=== PATIENT | male | born 1950 | race American Indian/Alaskan Native ===

== ENCOUNTER 2017-07-24 10:59 | Emergency (ER) | payer OTHER, MEDICARE ==
--- NOTE | 2017-07-24 11:08 | EDM.PDOC ---
ED HPI GENERAL MEDICAL PROBLEM - General Chief Complaint: Chest Pain Stated Complaint: Cough, fever, chest hurts with cough Time Seen by Provider: 07/24/17 11:06 Source of Information: Reports: Patient, Family, Old Records, RN, RN Notes Reviewed History Limitations: Reports: No Limitations - History of Present Illness INITIAL COMMENTS - FREE TEXT/NARRATIVE: Arrives from home by POV with c/o 4 days duration of productive cough, fever, chills, nausea, and chest pains which he attributes to coughing. Denies edema, or difficulty breathing. Admits to orthopnea. Onset: Gradual Onset Date: 07/20/17 Duration: Constant Location: Reports: Chest Quality: Reports: Ache Severity: Moderate Improves with: Reports: None Worsens with: Reports: Other (supine position) Context: Reports: Sick Contact (granddaughter) Associated Symptoms: Reports: No Other Symptoms - Related Data Allergies Allergy/AdvReac Type Severity Reaction Status Date / Time No Known Allergies Allergy Verified 07/24/17 11:11 Home Meds: Home Meds Insulin Aspart [NovoLOG] 15 units SQ TID 07/24/17 [History] Insulin Detemir [Levemir] 60 units SQ BEDTIME 07/24/17 [History] Past Medical History Endocrine/Metabolic History: Reports: Diabetes, Type II, IDDM Social & Family History - Family History Family Medical History: Noncontributory - Tobacco Use Smoking Status *Q: Former Smoker Years of Tobacco use: 20 Second Hand Smoke Exposure: Yes - Alcohol Use Days Per Week of Alcohol Use: 0 - Recreational Drug Use Recreational Drug Use: No - Living Situation & Occupation Living situation: Reports: , with Spouse Occupation: Employed ED ROS GENERAL - Review of Systems Review Of Systems: ROS reveals no pertinent complaints other than HPI. ED EXAM, GENERAL - Physical Exam Exam: See Below Exam Limited By: No Limitations General Appearance: Alert, WD/WN, No Apparent Distress Eye Exam: Bilateral Eye: Normal Inspection Ears: Normal External Exam, Normal Canal, Hearing Grossly Normal, Normal TMs Nose: No Blood, Nasal Drainage (mild clear-yellow nasal drainage) Throat/Mouth: Normal Lips, Normal Teeth, Normal Gums, Normal Voice, No Airway Compromise, Other (mild pharyngeal erythema) Head: Atraumatic, Normocephalic Neck: Normal Inspection, Supple, Non-Tender, Full Range of Motion. No: Lymphadenopathy (L), Lymphadenopathy (R) Respiratory/Chest: No Respiratory Distress, No Accessory Muscle Use, Decreased Breath Sounds, Rales (fine bibasilar crackles), Rhonchi (left base and mid-chest ) Cardiovascular: Regular Rate, Rhythm, No Edema, Tachycardia GI/Abdominal: Normal Bowel Sounds, Soft, Non-Tender, No Distention (Male) Exam: Deferred Rectal (Males) Exam: Deferred Back Exam: Normal Inspection. No: CVA Tenderness (L), CVA Tenderness (R) Extremities: Normal Inspection, Normal Range of Motion, Non-Tender, Normal Capillary Refill, No Pedal Edema Neurological: Alert, Oriented, CN II-XII Intact, Normal Cognition, No Motor/ Sensory Deficits Psychiatric: Normal Affect, Normal Mood Skin Exam: Warm, Dry, Intact, Normal Color, No Rash EKG INTERPRETATION EKG Date: 07/24/17 Time: 12:10 Rhythm: Other (Sinus tach.) Rate (Beats/Min): 110 [place]: Normal P-Wave: Present QRS: Normal ST-T: Depressed (possible ischemia in lateral and anterior leads) QT: Prolonged Comparison: NA - No Prior EKG Course - Vital Signs Last Recorded V/S: Last Vital Signs Temp 37.7 C 07/24/17 11:06 Pulse 115 H 07/24/17 11:06 Resp 20 07/24/17 11:06 BP 151/77 H 07/24/17 11:06 Pulse Ox 93 L 07/24/17 11:06 - Orders/Labs/Meds Orders: Active Orders 24 hr Category Date Time Status EKG 12 Lead [EKG Documentation Completion] [RC] STAT Care 07/24/17 11:22 Active Peripheral IV Care [RC] . DIRECTED Care 07/24/17 11:23 Active Peripheral IV Care [RC] . DIRECTED Care 07/24/17 12:45 Active CULTURE BLOOD [BC] Stat Lab 07/24/17 11:35 Received CULTURE BLOOD [] Stat Lab 07/24/17 11:41 Received CULTURE STREP A CONFIRMATION [] Stat Lab 07/24/17 12:30 Results STREP SCRN A RAPID W CULT CONF [] Stat Lab 07/24/17 12:30 Results UA W/MICROSCOPIC [URIN] Stat Lab 07/24/17 11:22 Ordered Heparin Sodium/D5W [Heparin 25,000 Units in D5W 500 ML] Med 07/24/17 12:30 Active 25,000 units in 500 ml IV TITRATE Sodium Chloride 0.9% [Normal Saline] 1,000 ml Med 07/24/17 11:24 Active IV .BOLUS Sodium Chloride 0.9% [Saline Flush] [facility] 07/24/17 11:23 Active 10 ml FLUSH ASDIRECTED PRN Sodium Chloride 0.9% [Saline Flush] [facility] 07/24/17 12:45 Active 10 ml FLUSH ASDIRECTED PRN Blood Culture x2 Reflex Set [OM.PC] Stat Ot 07/24/17 11:22 Ordered Peripheral IV Insertion Adult [OM.PC] Stat Ot 07/24/17 11:22 Ordered Peripheral IV Insertion Adult [OM.PC] Stat [facility] 07/24/17 12:45 Ordered Medication Orders Sodium Chloride (Normal Saline) 1,000 mls @ 200 mls/hr IV .BOLUS ONE Stop: 07/24/17 16:23 Last Admin: 07/24/17 11:44 Dose: 200 mls/hr Heparin Sodium/Dextrose (Heparin 25,000 Units In D5w 500 Ml) 25,000 units in 500 mls @ 26.998 mls/hr IV TITRATE MALENA; 12 UNITS/KG/HR PRN Reason: Protocol Last Admin: 07/24/17 12:46 Dose: 12 units/kg/hr, 26.998 mls/hr Sodium Chloride (Saline Flush) 10 ml FLUSH ASDIRECTED PRN PRN Reason: Keep Vein Open Last Admin: 07/24/17 11:44 Dose: 10 ml Sodium Chloride (Saline Flush) 10 ml FLUSH ASDIRECTED PRN PRN Reason: Keep Vein Open Last Admin: 07/24/17 12:59 Dose: 10 ml Labs: Laboratory Tests 07/24/17 07/24/17 07/24/17 Range/Units 11:35 11:35 11:35 WBC 6.0 (5.0-10.0) 10^3/uL RBC 4.71 (4.6-6.2) 10^6/uL Hgb 14.0 (14.0-18.0) g/dL Hct 41.2 (40.0-54.0) % MCV 87.5 (80-100) fL MCH 29.7 (27.0-34.0) pg MCHC 34.0 (33.0-35.0) g/dL Plt Count 224 D (150-450) 10^3/uL Neut % (Auto) 78.0 H (42.2-75.2) % Lymph % (Auto) 11.6 L (20.5-50.1) % [place] % (Auto) 9.6 H (2-8) % Eos % (Auto) 0.0 L (1.0-3.0) % Baso % (Auto) 0.8 (0.0-1.0) % Sodium 132 L (135-145) mmol/L Potassium 3.9 (3.6-5.0) mmol/L Chloride 97 L (101-111) mmol/L Carbon Dioxide 23.0 (21.0-31.0) mmol/L Anion Gap 15.9 BUN 26 H (7-18) mg/dL Creatinine 1.7 H (0.6-1.3) mg/dL Est Cr Clr Drug Dosing 41.91 mL/min Estimated GFR (MDRD) 41 BUN/Creatinine Ratio 15.29 Glucose 220 H (74-105) mg/dL Lactic Acid 2.0 (0.5-2.2) mmol/L Calcium 8.1 L (8.4-10.2) mg/dl Total Bilirubin 1.0 (0.2-1.0) mg/dL AST 58 H (10-42) IU/L ALT 32 (10-60) IU/L Alkaline Phosphatase 88 (42-121) IU/L Creatine Kinase (26-174) IU/L Creatine Kinase Index (0-2.4) % CK-MB (CK-2) (0.4-4.7) ng/mL Troponin I 6.00 H* (0.00-0.02) ng/ml B-Natriuretic Peptide (0-100) pg/ml Total Protein 7.2 (6.7-8.2) g/dl Albumin 2.9 L (3.2-5.5) g/dl Globulin 4.3 Albumin/Globulin Ratio 0.67 07/24/17 07/24/17 Range/Units 11:35 11:35 WBC (5.0-10.0) 10^3/uL RBC (4.6-6.2) 10^6/uL Hgb (14.0-18.0) g/dL Hct (40.0-54.0) % MCV (80-100) fL MCH (27.0-34.0) pg MCHC (33.0-35.0) g/dL Plt Count (150-450) 10^3/uL Neut % (Auto) (42.2-75.2) % Lymph % (Auto) (20.5-50.1) % [place] % (Auto) (2-8) % Eos % (Auto) (1.0-3.0) % Baso % (Auto) (0.0-1.0) % Sodium (135-145) mmol/L Potassium (3.6-5.0) mmol/L Chloride (101-111) mmol/L Carbon Dioxide (21.0-31.0) mmol/L Anion Gap BUN (7-18) mg/dL Creatinine (0.6-1.3) mg/dL Est Cr Clr Drug Dosing mL/min Estimated GFR (MDRD) BUN/Creatinine Ratio Glucose (74-105) mg/dL Lactic Acid (0.5-2.2) mmol/L Calcium (8.4-10.2) mg/dl Total Bilirubin (0.2-1.0) mg/dL AST (10-42) IU/L ALT (10-60) IU/L Alkaline Phosphatase (42-121) IU/L Creatine Kinase 861 H (26-174) IU/L Creatine Kinase Index 0.4 (0-2.4) % CK-MB (CK-2) 3.10 (0.4-4.7) ng/mL Troponin I (0.00-0.02) ng/ml B-Natriuretic Peptide 1450 H (0-100) pg/ml Total Protein (6.7-8.2) g/dl Albumin (3.2-5.5) g/dl Globulin Albumin/Globulin Ratio Meds: Medications Generic Name Dose Route Start Last Admin Trade Name Freq PRN Reason Stop Dose Admin Sodium Chloride 1,000 mls @ 200 mls/hr 07/24/17 11:24 07/24/17 11:44 Normal Saline IV 07/24/17 16:23 200 mls/hr .BOLUS ONE Administration Heparin Sodium/Dextrose 25,000 units in 500 mls @ 26.998 mls/hr 07/24/17 12: 30 07/24/17 12:46 Heparin 25,000 Units In D5w 500 Ml IV 12 units/kg/hr TITRATE MALENA 26.998 mls/hr Protocol Administration 12 UNITS/KG/HR Sodium Chloride 10 ml 07/24/17 11:23 07/24/17 11:44 Saline Flush FLUSH 10 ml ASDIRECTED PRN Administration Keep Vein Open Sodium Chloride 10 ml 07/24/17 12:45 07/24/17 12:59 Saline Flush FLUSH 10 ml ASDIRECTED PRN Administration Keep Vein Open Discontinued Medications Generic Name Dose Route Start Last Admin Trade Name Freq PRN Reason Stop Dose Admin Acetaminophen 650 mg 07/24/17 13:07 Tylenol PO 07/24/17 13:08 NOW ONE Aspirin 324 mg 07/24/17 12:24 07/24/17 12:33 Aspirin PO 07/24/17 12:25 324 mg ONETIME ONE Administration Ceftriaxone Sodium 1 gm 07/24/17 12:45 07/24/17 12:59 Rocephin IVPUSH 07/24/17 12:46 1 gm ONETIME ONE Administration Ondansetron HCl 4 mg 07/24/17 11:25 07/24/17 11:44 Zofran IV 07/24/17 11:26 4 mg ONETIME ONE Administration - Radiology Interpretation Free Text/Narrative:: CXR: Left lingula pneumonia, see Rad. report. Departure - Departure Time of Disposition: 13:06 Disposition: DC/Tfer to Acute Hospital 02 Condition: Serious Clinical Impression: Acute coronary syndrome, Non-STEMI (non-ST elevated myocardial infarction) Acute CHF (congestive heart failure) Qualifiers: Heart failure type: unspecified Qualified Code(s): I50.9 - Heart failure, unspecified Pneumonia Qualifiers: Pneumonia type: due to unspecified organism Laterality: left Lung location: lower lobe of lung Qualified Code(s): J18.1 - Lobar pneumonia, unspecified organism - Discharge Information Referrals: Genevieve Garcia VISITOR SERVICES TECHNICIAN [Primary Care Provider] - Forms: ED Department Discharge, Interfacility Transfer EMTALA - My Orders Last 24 Hours: My Active Orders 07/24/17 11:22 EKG 12 Lead [EKG Documentation Completion] [RC] STAT UA W/MICROSCOPIC [URIN] Stat Blood Culture x2 Reflex Set [OM.PC] Stat Peripheral IV Insertion Adult [OM.PC] Stat 07/24/17 11:23 Peripheral IV Care [RC] . DIRECTED Sodium Chloride 0.9% [Saline Flush] 10 ml FLUSH ASDIRECTED PRN 07/24/17 11:24 Sodium Chloride 0.9% [Normal Saline] 1,000 ml IV .BOLUS 07/24/17 11:35 CULTURE BLOOD [BC] Stat 07/24/17 11:41 CULTURE BLOOD [BC] Stat 07/24/17 12:30 CULTURE STREP A CONFIRMATION [RM] Stat STREP SCRN A RAPID W CULT CONF [RM] Stat Heparin Sodium/D5W [Heparin 25,000 Units in D5W 500 ML] 25,000 units in 500 ml IV TITRATE 07/24/17 12:45 Peripheral IV Care [RC] . DIRECTED Sodium Chloride 0.9% [Saline Flush] 10 ml FLUSH ASDIRECTED PRN Peripheral IV Insertion Adult [OM.] Stat - Assessment/Plan Last 24 Hours: My Active Orders 07/24/17 11:22 EKG 12 Lead [EKG Documentation Completion] [RC] STAT UA W/MICROSCOPIC [URIN] Stat Blood Culture x2 Reflex Set [OM.PC] Stat Peripheral IV Insertion Adult [OM.PC] Stat 07/24/17 11:23 Peripheral IV Care [RC] . DIRECTED Sodium Chloride 0.9% [Saline Flush] 10 ml FLUSH ASDIRECTED PRN 07/24/17 11:24 Sodium Chloride 0.9% [Normal Saline] 1,000 ml IV .BOLUS 07/24/17 11:35 CULTURE BLOOD [BC] Stat 07/24/17 11:41 CULTURE BLOOD [BC] Stat 07/24/17 12:30 CULTURE STREP A CONFIRMATION [RM] Stat STREP SCRN A RAPID W CULT CONF [RM] Stat Heparin Sodium/D5W [Heparin 25,000 Units in D5W 500 ML] 25,000 units in 500 ml IV TITRATE 07/24/17 12:45 Peripheral IV Care [RC] . DIRECTED Sodium Chloride 0.9% [Saline Flush] 10 ml FLUSH ASDIRECTED PRN Peripheral IV Insertion Adult [OM.] Stat
[2017-07-24 11:11] VITALS: BP 151/77
[2017-07-24] MEDS ORDERED: Sodium Chloride 0.9% 10 ML Syringe FLUSH PRN ×2 (11:23→12:45)
[2017-07-24] MEDS ORDERED: Sodium Chloride 0.9% 1,000 ML IV ONE (11:24)
[2017-07-24] MEDS ORDERED: Ondansetron 4 MG/2 ML SDV IV ONE (11:25)
[2017-07-24] MEDS ORDERED: Aspirin 81 MG Tab.Chew PO ONE (12:24)
[2017-07-24] MEDS ORDERED: Heparin Sodium/D5W 25,000 UNITS/500 ML BAG IV SCH (12:30)
[2017-07-24] MEDS ORDERED: cefTRIAXone 1 GM Vial IVPUSH ONE (12:45)
--- NOTE | 2017-07-24 12:56 | CR ---
CLINICAL HISTORY: 67-year-old extremely febrile male with chest pain (elevated serum troponin). INTERPRETATION: Upright AP portable chest film abnormal. *Asymmetric dense new pneumonic like consolidation lingular segment left upper lobe that silhouettes the left heart border (new since 10 April 2013 comparison film). Some generalized coarse accentuation of the perihilar lung markings but no other focal lobar consolid ation. Normal cardiac silhouette without cephalization of vascular flow, signs of alveolar edema or dependen t pleural effusion. No pneumothorax. CONCLUSION: Lingular pneumonia.
[2017-07-24] MEDS ORDERED: Acetaminophen 325 MG Tab PO ONE (13:07)
--- NOTE | 2017-07-26 10:58 | EKG ---
07/24/2017 - WINSTON CASTILLO - TIME: 12:10 p.m. FINDINGS: EKG shows sinus tachycardia with a rate of 110 beats per minute, also shows a borderline prolonged corrected QT interval of 482 milliseconds. [facility] /[id number]
== END 2017-07-24 13:19 ==
LOC: DL.ED 10:59
DX: I21.4 Non-ST elevation (NSTEMI) myocardial infarction (principal); I24.9 Acute ischemic heart disease, unspecified; I50.9 Heart failure, unspecified; E11.9 Type 2 diabetes mellitus without complications; J18.9 Pneumonia, unspecified organism; Z79.4 Long term (current) use of insulin; Z87.891 Personal history of nicotine dependence
CPT/HCPCS: 36415; 71045; 80053; 82550; 82553; 83605; 83880; 84484; 85025; 87040; 87081; 87430; 87804; 93005; 96361; 96365; 96375; 99285; A9270; J0696; J1644; J2405; J7030; J7050

== ENCOUNTER 2017-12-10 21:57 | Emergency (ER) | payer OTHER ==
[2017-12-10] MEDS ORDERED: GI Cocktail Oral Solution 30 ML PO ONE (22:10)
[2017-12-10] MEDS ORDERED: Ondansetron 4 MG/2 ML SDV IV ONE (22:10)
--- NOTE | 2017-12-10 22:13 | EDM.PDOC ---
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 CP began after leg massage and abd pain after eating egg salad. no vomiting but nauseous. Right Upper Abdomen Pain Score (Numeric/FACES): 9 - Related Data Allergies Allergy/AdvReac Type Severity Reaction Status Date / Time No Known Allergies Allergy Verified 12/10/17 22:01 Home Meds: Home Meds Insulin Aspart [NovoLOG] 15 units SQ TID 07/24/17 [History] Insulin Detemir [Levemir] 60 units SQ BEDTIME 07/24/17 [History] Past Medical History HEENT History: Reports: None Cardiovascular History: Reports: Bypass, High Cholesterol, Hypertension Respiratory History: Reports: Asthma Gastrointestinal History: Reports: None Genitourinary History: Reports: None Musculoskeletal History: Reports: Arthritis Neurological History: Reports: None Psychiatric History: Reports: None Endocrine/Metabolic History: Reports: Diabetes, Type II, IDDM Hematologic History: Reports: None Immunologic History: Reports: None Oncologic (Cancer) History: Reports: None Dermatologic History: Reports: None - Infectious Disease History Infectious Disease History: Reports: Chicken Pox, Measles, Mumps - Past Surgical History Head Surgeries/Procedures: Reports: None Cardiovascular Surgical History: Reports: Valve Replacement Social & Family History - Family History Family Medical History: Noncontributory - Tobacco Use Smoking Status *Q: Former Smoker Used Tobacco, but Quit: Yes Month/Year Tobacco Last Used: 11 - Caffeine Use Caffeine Use: Reports: Coffee - Recreational Drug Use Recreational Drug Use: No - Living Situation & Occupation Living situation: Reports: , with Spouse Occupation: Employed ED ROS GENERAL - Review of Systems Review Of Systems: ROS reveals no pertinent complaints other than HPI. ED EXAM, GENERAL - Physical Exam Exam: See Below Exam Limited By: No Limitations General Appearance: Alert, WD/WN, Mild Distress, Other (DISOCMFORT) Ears: Hearing Grossly Normal Throat/Mouth: Normal Voice, No Airway Compromise Head: Atraumatic Neck: Non-Tender, Full Range of Motion Respiratory/Chest: No Respiratory Distress Cardiovascular: Regular Rate, Rhythm GI/Abdominal: Distended, Guarding, Tender, Other (RUQ> epiG). No: Rigid, Rebound Neurological: Alert, Oriented, Normal Cognition, Normal Gait, No Motor/Sensory Deficits Psychiatric: Flat Affect Skin Exam: Warm, Dry, Normal Color Lymphatic: No Adenopathy Course - Vital Signs Last Recorded V/S: Last Vital Signs Temp 35.9 C 12/10/17 23:17 Pulse 65 12/10/17 23:45 Resp 17 12/10/17 23:45 BP 124/65 12/10/17 23:45 Pulse Ox 93 L 12/10/17 23:45 - Orders/Labs/Meds Orders: Active Orders 24 hr Category Date Time Status EKG 12 Lead [EKG Documentation Completion] [RC] STAT Care 12/10/17 22:05 Active Labs: Laboratory Tests 12/10/17 12/10/17 Range/Units 22:08 22:08 WBC 8.6 (5.0-10.0) 10^3/uL RBC 4.28 L (4.6-6.2) 10^6/uL Hgb 12.7 L (14.0-18.0) g/dL Hct 36.7 L (40.0-54.0) % MCV 85.7 (80-100) fL MCH 29.7 (27.0-34.0) pg MCHC 34.6 (33.0-35.0) g/dL Plt Count 249 (150-450) 10^3/uL Neut % (Auto) 50.1 (42.2-75.2) % Lymph % (Auto) 35.9 (20.5-50.1) % [place] % (Auto) 8.7 H (2-8) % Eos % (Auto) 4.3 H (1.0-3.0) % Baso % (Auto) 1.0 (0.0-1.0) % Sodium 134 L (135-145) mmol/L Potassium 4.1 (3.6-5.0) mmol/L Chloride 101 (101-111) mmol/L Carbon Dioxide 26.0 (21.0-31.0) mmol/L Anion Gap 11.1 BUN 33 H (7-18) mg/dL Creatinine 2.1 H (0.6-1.3) mg/dL Est Cr Clr Drug Dosing 33.93 mL/min Estimated GFR (MDRD) 32 BUN/Creatinine Ratio 15.71 Glucose 250 H (74-105) mg/dL Calcium 9.1 (8.4-10.2) mg/dl Total Bilirubin 0.5 (0.2-1.0) mg/dL AST 34 (10-42) IU/L ALT 28 (10-60) IU/L Alkaline Phosphatase 199 H (42-121) IU/L Troponin I 0.02 (0.00-0.02) ng/ml B-Natriuretic Peptide 82 (0-100) pg/ml Total Protein 6.9 (6.7-8.2) g/dl Albumin 3.4 (3.2-5.5) g/dl Globulin 3.5 Albumin/Globulin Ratio 0.97 Meds: Medications Discontinued Medications Generic Name Dose Route Start Last Admin Trade Name Freq PRN Reason Stop Dose Admin Al Hydroxide/Mg Hydroxide 30 ml 12/10/17 22:10 12/10/17 22:16 Gi Cocktail PO 12/10/17 22:11 30 ml ONETIME ONE Administration Hydromorphone HCl 1 mg 12/10/17 23:07 12/10/17 23:12 Dilaudid IVPUSH 12/10/17 23:08 1 mg ONETIME ONE Administration Ondansetron HCl 4 mg 12/10/17 22:10 12/10/17 22:15 Zofran IV 12/10/17 22:11 4 mg ONETIME ONE Administration - Re-Assessments/Exams Free Text/Narrative Re-Assessment/Exam: 12/10/17 23:00 s/p GI cocktail = 'o'. 12/10/17 23:47 results discussed with pt who is feeling much better now. Departure - Departure Time of Disposition: 23:48 Disposition: Home, Self-Care 01 Condition: Good Clinical Impression: Abdominal pain Qualifiers: Abdominal location: epigastric Qualified Code(s): R10.13 - Epigastric pain Instructions: Abdominal Pain, Adult, [id number] Forms: ED Department Discharge Additional Instructions: 1) avoid solid foods next 48 hours 2) have liquids broth 3) follow up at clinic - My Orders Last 24 Hours: My Active Orders 12/10/17 22:05 EKG 12 Lead [EKG Documentation Completion] [RC] STAT - Assessment/Plan Last 24 Hours: My Active Orders 12/10/17 22:05 EKG 12 Lead [EKG Documentation Completion] [RC] STAT
[2017-12-10 22:37] LABS: ANION GAP 11.1
[2017-12-10] MEDS ORDERED: HYDROmorphone 0.5 MG/0.5 ML Syringe IVPUSH ONE (23:07)
[2017-12-10 23:46] VITALS: BP 124/65
--- NOTE | 2017-12-12 07:34 | EKG ---
12/10/2017- WINSTON CASTILLO - EKG per my reading, shows sinus rhythm with lateral T-wave inversion. [facility] /[id number]
== END 2017-12-10 23:58 | disposition home or self-care (01) ==
LOC: DL.ED 21:57
DX: R10.13 Epigastric pain (principal); E11.9 Type 2 diabetes mellitus without complications; I10 Essential (primary) hypertension; Z87.891 Personal history of nicotine dependence; Z79.4 Long term (current) use of insulin
CPT/HCPCS: 36415; 71045; 74176; 80053; 83880; 84484; 85025; 93005; 96374; 96375; 99285; A9270; J1170; J2405

== ENCOUNTER 2018-07-17 14:13 | Emergency (ER) | payer BC, OTHER ==
[2018-07-17] MEDS ORDERED: HYDROmorphone 1 MG/ML Syringe IM ONE (15:25)
--- NOTE | 2018-07-17 15:46 | EDM.PDOC ---
ED HPI GENERAL MEDICAL PROBLEM - General Chief Complaint: Lower Extremity Injury/Pain Stated Complaint: SURG IN [place], PAIN Time Seen by Provider: 07/17/18 14:45 Source of Information: Reports: Patient, RN, RN Notes Reviewed History Limitations: Reports: No Limitations - History of Present Illness INITIAL COMMENTS - FREE TEXT/NARRATIVE: Patient presents to ER with complaint of pain to left foot with the last 3 toes being amputated this a.m. at 0730. He was discharged home at 1100. He rates the pain as a 9-10/10. States he took pain meds at 1300 and 1330 that are not helping at all. He states it feels as though its frozen solid. Onset: Today Duration: Constant Location: Reports: Lower Extremity, Left Quality: Reports: Ache Severity: Moderate Improves with: Reports: None Worsens with: Reports: None Associated Symptoms: Reports: No Other Symptoms Left Foot Pain Score (Numeric/FACES): 10 - Related Data Allergies Allergy/AdvReac Type Severity Reaction Status Date / Time No Known Allergies Allergy Verified 12/10/17 22:01 Home Meds: Home Meds Insulin Aspart [NovoLOG] 15 units SQ TID 07/24/17 [History] Insulin Detemir [Levemir] 20 units SQ BEDTIME 07/24/17 [History] Aspirin [Halfprin] 81 mg PO DAILY 07/17/18 [History] Furosemide 40 mg PO DAILY 07/17/18 [History] Mometasone/Formoterol [Dulera 200 Mcg/5 Mcg Inhaler] 2 puff INH BID 07/17/18 [ History] Saxagliptin HCl [Onglyza] 5 mg PO DAILY 07/17/18 [History] Past Medical History HEENT History: Reports: None Cardiovascular History: Reports: Bypass, High Cholesterol, Hypertension Respiratory History: Reports: Asthma Gastrointestinal History: Reports: None Genitourinary History: Reports: None Musculoskeletal History: Reports: Arthritis Neurological History: Reports: None Psychiatric History: Reports: None Endocrine/Metabolic History: Reports: Diabetes, Type II, IDDM Hematologic History: Reports: None Immunologic History: Reports: None Oncologic (Cancer) History: Reports: None Dermatologic History: Reports: None - Infectious Disease History Infectious Disease History: Reports: Chicken Pox, Measles, Mumps - Past Surgical History Head Surgeries/Procedures: Reports: None Cardiovascular Surgical History: Reports: Valve Replacement Social & Family History - Family History Family Medical History: Noncontributory - Tobacco Use Smoking Status *Q: Never Smoker Second Hand Smoke Exposure: No - Caffeine Use Caffeine Use: Reports: Coffee, Tea - Recreational Drug Use Recreational Drug Use: No - Living Situation & Occupation Living situation: Reports: , with Spouse Occupation: Employed Review of Systems - Review of Systems Review Of Systems: ROS reveals no pertinent complaints other than HPI. ED EXAM, GENERAL - Physical Exam Exam: See Below Exam Limited By: No Limitations General Appearance: Other (in pain) Eye Exam: Bilateral Eye: EOMI, Normal Inspection, PERRL Ears: Normal External Exam, Normal Canal, Hearing Grossly Normal, Normal TMs Nose: Normal Inspection, Normal Mucosa, No Blood Throat/Mouth: Normal Inspection, Normal Lips, Normal Teeth, Normal Gums, Normal Oropharynx, Normal Voice, No Airway Compromise Head: Atraumatic, Normocephalic Neck: Normal Inspection, Supple, Non-Tender, Full Range of Motion Respiratory/Chest: No Respiratory Distress, Lungs Clear, Normal Breath Sounds, No Accessory Muscle Use, Chest Non-Tender Cardiovascular: Normal Peripheral Pulses, Regular Rate, Rhythm, No Edema, No Gallop, No JVD, No Murmur, No Rub (Male) Exam: Deferred Rectal (Males) Exam: Deferred Back Exam: Normal Inspection, Full Range of Motion, NT Extremities: Other (see skin exam) Neurological: Other (in pain) Psychiatric: Anxious Skin Exam: Other (left foot swollen. Dressing with quite a bit of blood that was re-dressed. [place] and sutures intact. ) Lymphatic: No Adenopathy Course - Vital Signs Last Recorded V/S: Last Vital Signs Temp 98.5 F 07/17/18 14:20 Pulse 90 07/17/18 14:20 Resp 18 07/17/18 14:20 BP 137/66 07/17/18 14:20 Pulse Ox 100 07/17/18 14:20 - Orders/Labs/Meds Orders: Active Orders 24 hr Category Date Time Status Peripheral IV Care [RC] . DIRECTED Care 07/17/18 17:05 Active Sodium Chloride 0.9% [Saline Flush] Med 07/17/18 17:05 Active 10 ml FLUSH ASDIRECTED PRN fentaNYL [Sublimaze] Med 07/17/18 18:19 Once 50 mcg IVPUSH ONETIME ONE Peripheral IV Insertion Adult [OM.PC] Stat Oth 07/17/18 17:05 Ordered Medication Orders Fentanyl (Sublimaze) 50 mcg IVPUSH ONETIME ONE Stop: 07/17/18 18:20 Sodium Chloride (Saline Flush) 10 ml FLUSH ASDIRECTED PRN PRN Reason: Keep Vein Open Last Admin: 07/17/18 17:22 Dose: 10 ml Admin: 07/17/18 17:18 Dose: 10 ml Meds: Medications Generic Name Dose Route Start Last Admin Trade Name Freq PRN Reason Stop Dose Admin Fentanyl 50 mcg 07/17/18 18:19 Sublimaze IVPUSH 07/17/18 18:20 ONETIME ONE Sodium Chloride 10 ml 07/17/18 17:05 07/17/18 17:22 Saline Flush FLUSH 10 ml ASDIRECTED PRN Administration Keep Vein Open Discontinued Medications Generic Name Dose Route Start Last Admin Trade Name Freq PRN Reason Stop Dose Admin Fentanyl 50 mcg 07/17/18 17:04 07/17/18 17:19 Sublimaze IVPUSH 07/17/18 17:05 50 mcg ONETIME ONE Administration Hydromorphone HCl 1 mg 07/17/18 15:25 07/17/18 15:48 Dilaudid IM 07/17/18 15:26 1 mg ONETIME ONE Administration Departure - Departure Time of Disposition: 18:20 Disposition: Home, Self-Care 01 Condition: Fair Clinical Impression: Pain in left foot, Status post amputation of toe of left foot - Discharge Information *PRESCRIPTION DRUG MONITORING PROGRAM REVIEWED*: No *COPY OF PRESCRIPTION DRUG MONITORING REPORT IN PATIENT LAILA: No Forms: ED Department Discharge Additional Instructions: Follow up with home health tomorrow morning Follow up with podiatry Continue taking pain medications as prescribed Keep the foot elevated, may ice as tolerated - My Orders Last 24 Hours: My Active Orders 07/17/18 17:05 Peripheral IV Care [RC] . DIRECTED Sodium Chloride 0.9% [Saline Flush] 10 ml FLUSH ASDIRECTED PRN Peripheral IV Insertion Adult [OM.PC] Stat 07/17/18 18:19 fentaNYL [Sublimaze] 50 mcg IVPUSH ONETIME ONE - Assessment/Plan Last 24 Hours: My Active Orders 07/17/18 17:05 Peripheral IV Care [RC] . DIRECTED Sodium Chloride 0.9% [Saline Flush] 10 ml FLUSH ASDIRECTED PRN Peripheral IV Insertion Adult [OM.PC] Stat 07/17/18 18:19 fentaNYL [Sublimaze] 50 mcg IVPUSH ONETIME ONE
[2018-07-17] MEDS ORDERED: fentaNYL 100 MCG/2 ML SDV IVPUSH ONE ×2 (17:04→18:19)
[2018-07-17] MEDS: Sodium Chloride 0.9% 10 ML Syringe FLUSH PRN ×2 (17:18→17:22)
[2018-07-17 18:37] VITALS: BP 143/75
== END 2018-07-17 18:47 | disposition home or self-care (01) ==
LOC: DL.ED 14:13
DX: M25.572 Pain in left ankle and joints of left foot (principal); E78.00 Pure hypercholesterolemia, unspecified; I10 Essential (primary) hypertension; J45.909 Unspecified asthma, uncomplicated; E11.9 Type 2 diabetes mellitus without complications; Z79.4 Long term (current) use of insulin; Z79.899 Other long term (current) drug therapy; Z89.422 Acquired absence of other left toe(s)
CPT/HCPCS: 96372; 96374; 96376; 99283-25; J1170; J3010

== ENCOUNTER 2019-01-15 04:25 | Emergency (ER) | payer MEDICARE, OTHER ==
[2019-01-15 05:20] VITALS: BP 148/121
[2019-01-15] MEDS ORDERED: Acetaminophen/oxyCODONE 325-5 MG Tab PO ONE (05:34)
[2019-01-15] MEDS ORDERED: diphenhydrAMINE 25 MG Tab PO ONE (05:35)
--- NOTE | 2019-01-15 05:51 | EDM.PDOC ---
ED HPI GENERAL MEDICAL PROBLEM - General Chief Complaint: General Stated Complaint: CANT SLEEP Time Seen by Provider: 01/15/19 05:00 Source of Information: Reports: Patient History Limitations: Reports: No Limitations - History of Present Illness INITIAL COMMENTS - FREE TEXT/NARRATIVE: ED with c/o not being able to sleep for past 2 nights. Has multiple appointments for heart, eyes, and pain set up, notes worrying and thinking about them. 3 cups caffeine in am maybe 2 cups tea. Pain left foot, throbbing. Recent amputee of toes. Area healing per patient. Admits out of percocet. Stated due to having pain would take an extra during day. Left Feet Pain Score (Numeric/FACES): 4 - Related Data Allergies Allergy/AdvReac Type Severity Reaction Status Date / Time lisinopril Allergy Cough Verified 01/15/19 04:59 Home Meds: Home Meds Insulin Aspart [NovoLOG] 15 units SQ TID 07/24/17 [History] Insulin Detemir [Levemir] 20 units SQ BEDTIME 07/24/17 [History] Aspirin [Halfprin] 81 mg PO DAILY 07/17/18 [History] Furosemide 40 mg PO DAILY 07/17/18 [History] Mometasone/Formoterol [Dulera 200 Mcg/5 Mcg Inhaler] 2 puff INH BID 07/17/18 [ History] Saxagliptin HCl [Onglyza] 5 mg PO DAILY 07/17/18 [History] Past Medical History HEENT History: Reports: Cataract Cardiovascular History: Reports: Bypass, High Cholesterol, Hypertension Respiratory History: Reports: Asthma Gastrointestinal History: Reports: None Genitourinary History: Reports: None Musculoskeletal History: Reports: Amputation, Arthritis Neurological History: Reports: None Psychiatric History: Reports: None Endocrine/Metabolic History: Reports: Diabetes, Type II, IDDM Hematologic History: Reports: None Immunologic History: Reports: None Oncologic (Cancer) History: Reports: None Dermatologic History: Reports: None - Infectious Disease History Infectious Disease History: Reports: Chicken Pox, Measles, Mumps - Past Surgical History Head Surgeries/Procedures: Reports: None Cardiovascular Surgical History: Reports: Valve Replacement Musculoskeletal Surgical History: Reports: Amputation, Other (See Below) Other Musculoskeletal Surgeries/Procedures:: all digits on L) foot. Social & Family History - Family History Family Medical History: Noncontributory - Tobacco Use Smoking Status *Q: Former Smoker Used Tobacco, but Quit: Yes Month/Year Tobacco Last Used: 12/2007 - Caffeine Use Caffeine Use: Reports: Coffee, Tea - Recreational Drug Use Recreational Drug Use: No - Living Situation & Occupation Living situation: Reports: , with Spouse Occupation: Employed ED ROS GENERAL - Review of Systems Review Of Systems: ROS reveals no pertinent complaints other than HPI. ED EXAM, GENERAL - Physical Exam Exam: See Below Exam Limited By: No Limitations General Appearance: Alert, No Apparent Distress, Anxious Eye Exam: Bilateral Eye: EOMI, PERRL Ears: Normal External Exam, Hearing Grossly Normal Nose: Normal Inspection Throat/Mouth: Normal Inspection Head: Atraumatic, Normocephalic Neck: Normal Inspection Respiratory/Chest: No Respiratory Distress, Lungs Clear, Normal Breath Sounds Cardiovascular: Normal Peripheral Pulses, Regular Rate, Rhythm GI/Abdominal: Normal Bowel Sounds, Soft Back Exam: Normal Inspection, Full Range of Motion Extremities: Normal Inspection, Normal Range of Motion Neurological: Alert, Oriented, Normal Cognition Psychiatric: Normal Affect Skin Exam: Warm, Dry, Other (left foot, surgical site, mild swelling , healing distal fore foot. scant whte area patches in wound, pink granulating base. ) Course - Vital Signs Last Recorded V/S: Last Vital Signs Temp 98 F 01/15/19 05:00 Pulse 85 01/15/19 05:00 Resp 16 01/15/19 05:00 BP 148/121 H 01/15/19 05:00 Pulse Ox 98 01/15/19 05:00 - Orders/Labs/Meds Meds: Medications Discontinued Medications Generic Name Dose Route Start Last Admin Trade Name Lucrecia PRN Reason Stop Dose Admin Diphenhydramine HCl 25 mg 01/15/19 05:35 01/15/19 05:39 Benadryl PO 01/15/19 05:36 25 mg ONETIME ONE Administration Oxycodone/Acetaminophen 1 tab 01/15/19 05:34 01/15/19 05:38 Percocet 325-5 Mg PO 01/15/19 05:35 1 tab ONETIME ONE Administration Departure - Departure Time of Disposition: 05:35 Disposition: Home, Self-Care 01 Condition: Good Clinical Impression: Chronic, continuous use of opioids Insomnia Qualifiers: Insomnia type: unspecified Qualified Code(s): G47.00 - Insomnia, unspecified - Discharge Information *PRESCRIPTION DRUG MONITORING PROGRAM REVIEWED*: Yes *COPY OF PRESCRIPTION DRUG MONITORING REPORT IN PATIENT LAILA: Yes Instructions: Insomnia Referrals: Dayton Ghotra MD [Primary Care Provider] - Forms: ED Department Discharge Additional Instructions: limit caffeine intake follow up with primary care provider melatonin 3mg every evening as needed for sleep take at least 2 hours prior to bed. tylenol 650mg every 4 hours as needeed for discomfort
== END 2019-01-15 05:42 | disposition home or self-care (01) ==
LOC: DL.ED 04:25
DX: G47.00 Insomnia, unspecified (principal); F11.90 Opioid use, unspecified, uncomplicated; E78.00 Pure hypercholesterolemia, unspecified; I10 Essential (primary) hypertension; E11.9 Type 2 diabetes mellitus without complications; Z88.8 Allergy status to other drugs, medicaments and biological substances; Z79.4 Long term (current) use of insulin; Z79.82 Long term (current) use of aspirin; Z79.899 Other long term (current) drug therapy; Z87.891 Personal history of nicotine dependence
CPT/HCPCS: 99282; A9270

== ENCOUNTER 2019-02-13 08:02 | Day surgery (SDC) | payer MEDICARE, OTHER ==
[2019-02-13] MEDS ORDERED: Dexamethasone 4 MG/ML SDV IV ONE (08:03)
[2019-02-13] MEDS ORDERED: Midazolam 1 MG/ML 2 ML SDV IV ONE (08:03)
[2019-02-13] MEDS ORDERED: Lidocaine 1% 30 ML SDV ONE (09:34)
[2019-02-13] MEDS ORDERED: Tetracaine HCl/PF 0.5% 4 ML Bottle EYELF ONE (09:35)
[2019-02-13] MEDS ORDERED: Povidone-Iodine 5% Sterile Ophth Soln 30 ML Bottle EYELF ONE ×2 (09:36→10:15)
[2019-02-13] MEDS ORDERED: Dexamethasone/Neomycin/Polymyxin B Ophth Oint 3.5 GM Tube EYELF ONE (09:37)
[2019-02-13] MEDS ORDERED: Apraclonidine 0.5% Ophth Soln 5 ML Bot EYELF ONE (09:37)
[2019-02-13] MEDS ORDERED: Diclofenac Sodium 0.1% Ophth Soln 5 ML Bottle EYELF ONE (09:37)
[2019-02-13] MEDS ORDERED: Chondroitin Sulfate/Hyaluronate Sodium Ophth Inj 0.75 ML Syringe EYELF ONE (09:38)
[2019-02-13] MEDS ORDERED: Vancomycin 500 MG SDV EYELF ONE (09:38)
[2019-02-13] MEDS ORDERED: Balanced Salt Solution Ophth Irrig 500 ML Bottle IOCULAR ONE (09:38)
[2019-02-13] MEDS ORDERED: Sodium Chloride 0.9% 10 ML Syringe FLUSH PRN (10:15)
[2019-02-13] MEDS ORDERED: Ondansetron 4 MG/2 ML SDV IVPUSH PRN (10:15)
[2019-02-13] MEDS ORDERED: Proparacaine 0.5% Ophth Soln 15 ML Bottle EYELF ONE (10:15)
[2019-02-13] MEDS ORDERED: Acetaminophen 325 MG Tab PO PRN (10:15)
[2019-02-13] MEDS ORDERED: Moxifloxacin 0.5% Ophth Soln 3 ML Bottle EYELF ONE (10:15)
[2019-02-13] MEDS ORDERED: Phenylephrine 10% Ophth Soln 5 ML Bot EYELF ONE (10:15)
[2019-02-13] MEDS ORDERED: Timolol Maleate 0.5% Ophth Soln 5 ML Bottle EYELF ONE (10:15)
[2019-02-13] MEDS ORDERED: Phenylephrine 10% Ophth Soln 5 ML Bot EYELF PRN (10:15)
[2019-02-13] MEDS ORDERED: Cataract Ophth Solution EYELF ONE (10:15)
[2019-02-13 10:52] VITALS: BP 148/68; PULSE 68
--- NOTE | 2019-02-14 08:28 | OR ---
DATE: 02/13/2019 PREOPERATIVE DIAGNOSIS: Visually significant mixed cataract, left eye. POSTOPERATIVE DIAGNOSIS: Visually significant mixed cataract, left eye. PROCEDURE: Extracapsular cataract extraction with intraocular lens implant, left eye. ANESTHESIA: Topical/local MAC. COMPLICATIONS: None. INDICATION: Mr. Pitt was seen in the clinic. His examination revealed visually significant cataract. He is unhappy with his vision. I offered cataract surgery and I explained risks including, but not limited to, infection, retinal detachment, loss of vision, need for additional surgery, amongst others. We discussed implant options. He has requested a monofocal implant. He is comfortable wearing spectacle correction following surgery if necessary. He does have a history of diabetic retinopathy and understands that there is a potential for visual limitation secondary to his diabetes. OPERATIVE DESCRIPTION: After informed consent was obtained and the risks, benefits, and alternatives were explained, the patient was brought to the operative suite and topical anesthesia was administered. The patient was then prepped and draped in the sterile fashion and attention was placed on the left eye. A sterile lid speculum was placed into the left eye to allow operative exposure. A full-thickness paracentesis was made in the temporal portion of the operative eye. Preservative-free lidocaine 0.1 mL was injected into the anterior chamber followed by viscoelastic. A full-thickness corneal incision was then made into the anterior chamber. A bent needle cystotome was used to create a small mel in the anterior capsule. The capsulorrhexis forceps was then used to create a 360-degree curvilinear capsulorrhexis. The nucleus was then removed using a phacoemulsification handpiece and the remaining cortical material was then removed with irrigation and aspiration handpiece. Following removal of the cortical material, the capsular bag was then inspected and noted to be free of any holes or tears. Viscoelastic was then injected into the capsular bag and the intraocular lens was inserted into the capsular bag. The viscoelastic material was then removed from both the anterior and posterior chambers and from behind the IOL. The lens and capsular bag were then reinspected. The IOL was well centered and the capsular bag intact. The wound and paracentesis sites were inspected and hydrated with balanced saline solution. Both were found to be self-sealing. The intraocular pressure was assessed digitally and found to be within normal range. A good red reflex was noted at the completion of the procedure. No complications occurred during the operation. At the completion of the procedure, Maxitrol, Voltaren, and Iopidine drops were placed into the operative eye. A sterile eye shield was placed over the operative eye and the patient was transported to the postoperative recovery area having tolerated the procedure well. Postoperative instructions were given along with a postoperative appointment. The patient was advised to call with any questions or concerns. [facility] /[id number]
== END 2019-02-13 11:00 | disposition home or self-care (01) ==
LOC: DL.SDS 08:02
PROVIDERS: ATTEND Ophthalmology
DX: E11.36 Type 2 diabetes mellitus with diabetic cataract (principal); E11.39 Type 2 diabetes mellitus with other diabetic ophthalmic complication; H25.813 Combined forms of age-related cataract, bilateral; E78.5 Hyperlipidemia, unspecified; I13.0 Hypertensive heart and chronic kidney disease with heart failure and stage 1 through stage 4 chronic kidney disease, or unspecified chronic kidney disease; N18.3 Chronic kidney disease, stage 3 (moderate); E11.22 Type 2 diabetes mellitus with diabetic chronic kidney disease; E11.42 Type 2 diabetes mellitus with diabetic polyneuropathy; E11.319 Type 2 diabetes mellitus with unspecified diabetic retinopathy without macular edema; M19.012 Primary osteoarthritis, left shoulder; I50.9 Heart failure, unspecified; J45.20 Mild intermittent asthma, uncomplicated; D50.9 Iron deficiency anemia, unspecified; Z87.891 Personal history of nicotine dependence; Z88.8 Allergy status to other drugs, medicaments and biological substances
CPT/HCPCS: 66984; 82962; A9270; J1100; J2001; J2250; J3370; V2632

== ENCOUNTER 2020-12-12 09:55 | Emergency (ER) | payer MEDICARE, OTHER ==
[2020-12-12] MEDS ORDERED: Azithromycin 250 MG Tab PO ONE ×2 (09:56→12:32)
[2020-12-12 10:27] VITALS: BP 115/59; PULSE 69
--- NOTE | 2020-12-12 11:01 | EDM.PDOC ---
ED HPI GENERAL MEDICAL PROBLEM - General Chief Complaint: Respiratory Problem Stated Complaint: [id number] COUGH Time Seen by Provider: 12/12/20 10:50 Source of Information: Reports: Patient History Limitations: Reports: No Limitations - History of Present Illness INITIAL COMMENTS - FREE TEXT/NARRATIVE: This 70 yo male patient reports to the ED with a cough and chest congestion. The patient reports his symptoms started 4-5 days ago, but have been getting worse. The patient reports increased symptoms when he tries to lay down. The patient has a history of cardiac disease, but no history of lung/breathing problems. The patient has been taking over the counter medications with little to no symptom relief. Duration: Day(s):, Constant, Getting Worse Location: Reports: Chest Quality: Reports: Other Severity: Moderate Improves with: Reports: None Worsens with: Reports: None Context: Reports: Other Associated Symptoms: Reports: cough w sputum Treatments [employer]: Reports: Other Medication(s) - Related Data Allergies Allergy/AdvReac Type Severity Reaction Status Date / Time lisinopril Allergy Cough Verified 12/12/20 10:22 Home Meds: Home Meds Insulin Aspart [NovoLOG] 15 units SQ TID 07/24/17 [History] Insulin Detemir [Levemir] 40 units SQ BEDTIME 07/24/17 [History] Aspirin [Halfprin] 81 mg PO DAILY 07/17/18 [History] Furosemide 40 mg PO DAILY 07/17/18 [History] Alogliptin Benzoate [Alogliptin] 12.5 mg PO DAILY 02/12/19 [History] Ferrous Sulfate 325 mg PO BID 02/12/19 [History] Fluticasone Propion/Salmeterol [Fluticasone-Salmeterol 500-50] 1 puff INH BID PRN 02/12/19 [History] Lidocaine 5% [Lidoderm 5%] 1 patch TOP Q12H PRN 02/12/19 [History] Multivitamin with Minerals [Multivitamins with Minerals] 1 tab PO DAILY 02/12/19 [History] Psyllium [Metamucil] 1 cap PO DAILY 02/12/19 [History] atorvaSTATin Calcium [Atorvastatin Calcium] 20 mg PO DAILY 02/12/19 [History] carvediloL [Carvedilol] 25 mg PO DAILY 02/12/19 [History] traZODone HCl [Trazodone HCl] 50 mg PO BEDTIME 02/12/19 [History] Past Medical History HEENT History: Reports: Cataract, Macular Degeneration Cardiovascular History: Reports: Bypass, Heart Failure, High Cholesterol, Hypertension Respiratory History: Reports: Asthma Gastrointestinal History: Reports: None, Other (See Below) Other Gastrointestinal History: INDIGESTION Genitourinary History: Reports: Renal Disease Musculoskeletal History: Reports: Amputation, Arthritis Neurological History: Reports: None, Neuropathy, Diabetic, Neuropathy, Peripheral Psychiatric History: Reports: None Endocrine/Metabolic History: Reports: Diabetes, Type II, IDDM Hematologic History: Reports: Iron Deficiency Immunologic History: Reports: None Oncologic (Cancer) History: Reports: None Dermatologic History: Reports: None - Infectious Disease History Infectious Disease History: Reports: Chicken Pox, Measles, Mumps - Past Surgical History Head Surgeries/Procedures: Reports: None Cardiovascular Surgical History: Reports: Coronary Artery Bypass, Valve Replacement Neurological Surgical History: Reports: None Musculoskeletal Surgical History: Reports: Amputation, Other (See Below) Other Musculoskeletal Surgeries/Procedures:: all digits on L) foot. Dermatological Surgical History: Reports: None Social & Family History - Family History Family Medical History: No Pertinent Family History - Tobacco Use Tobacco Use Status *Q: Never Tobacco User - Caffeine Use Caffeine Use: Reports: Coffee, Tea - Recreational Drug Use Recreational Drug Use: No - Living Situation & Occupation Living situation: Reports: , with Spouse Occupation: Employed ED ROS GENERAL - Review of Systems Review Of Systems: Comprehensive ROS is negative, except as noted in HPI. ED EXAM, GENERAL - Physical Exam Exam: See Below Exam Limited By: No Limitations General Appearance: Alert, WD/WN, Mild Distress Eye Exam: Bilateral Eye: EOMI, Normal Inspection, PERRL Ears: Normal External Exam, Normal Canal, Hearing Grossly Normal, Normal TMs Nose: Normal Inspection, Normal Mucosa, No Blood Throat/Mouth: Normal Inspection, Normal Lips, Normal Teeth, Normal Gums, Normal Oropharynx, Normal Voice, No Airway Compromise Head: Atraumatic, Normocephalic Neck: Normal Inspection, Supple, Non-Tender, Full Range of Motion Respiratory/Chest: No Accessory Muscle Use, Chest Non-Tender, Rhonchi (diffuse) Cardiovascular: Normal Peripheral Pulses, Regular Rate, Rhythm, No Edema, No Gallop, No JVD, No Murmur, No Rub GI/Abdominal: Normal Bowel Sounds (Male) Exam: Deferred Rectal (Males) Exam: Deferred Back Exam: Normal Inspection, Full Range of Motion, NT Extremities: Normal Inspection, Normal Range of Motion, Non-Tender, Normal Capillary Refill, No Pedal Edema Neurological: Alert, Oriented, CN II-XII Intact, Normal Cognition, Normal Gait, Normal Reflexes, No Motor/Sensory Deficits Psychiatric: Normal Affect, Normal Mood Skin Exam: Warm, Dry, Intact, Normal Color, No Rash Lymphatic: No Adenopathy #1 Interpretation EKG Date: 12/12/20 Time: 10:45 Rhythm: NSR Rate (Beats/Min): 63 Center: Normal P-Wave: Present QRS: Normal ST-T: Normal QT: Normal Comparison: No Change Course - Vital Signs Last Recorded V/S: Last Vital Signs Temp 98.1 F 12/12/20 10:26 Pulse 69 12/12/20 10:26 Resp 16 12/12/20 10:26 BP 115/59 L 12/12/20 10:26 Pulse Ox 97 12/12/20 10:26 - Orders/Labs/Meds Orders: Active Orders 24 hr Category Date Time Status EKG Documentation Completion [RC] STAT Care 12/12/20 10:31 Active CULTURE BLOOD [BC] Stat Lab 12/12/20 10:41 Received Labs: Laboratory Tests 12/12/20 12/12/20 12/12/20 Range/Units 10:41 10:41 10:41 WBC 8.1 (5.0-10.0) 10^3/uL RBC 3.38 L (4.6-6.2) 10^6/uL Hgb 10.2 L D (14.0-18.0) g/dL Hct 31.3 L (40.0-54.0) % MCV 92.6 D (80-100) fL MCH 30.2 (27.0-34.0) pg MCHC 32.6 L (33.0-35.0) g/dL Plt Count 341 D (150-450) 10^3/uL Neut % (Auto) 60.8 (42.2-75.2) % Lymph % (Auto) 22.6 (20.5-50.1) % [place] % (Auto) 8.6 H (2-8) % Eos % (Auto) 7.3 H (1.0-3.0) % Baso % (Auto) 0.7 (0.0-1.0) % Sodium 142 (136-145) mmol/L Potassium 4.6 (3.5-5.1) mmol/L Chloride 109 H (98-107) mmol/L Carbon Dioxide 21 (21-32) mmol/L Anion Gap 16.6 H (7-13) mEq/L BUN 39 H (7-18) mg/dL Creatinine 3.25 H (0.70-1.30) mg/dL Est Cr Clr Drug Dosing 21.05 mL/min Estimated GFR (MDRD) 19 BUN/Creatinine Ratio 12.0 (No establ ref range) Glucose 181 H (70-99) mg/dL Lactic Acid 0.9 (0.4-2.0) mmol/L Calcium 8.5 (8.5-10.1) mg/dL Total Bilirubin 0.3 (0.2-1.0) mg/dL AST 13 L (15-37) U/L ALT 18 (16-63) U/L Alkaline Phosphatase 128 H (46-116) U/L Troponin I High Sens 86 H* (<=76) pg/mL B-Natriuretic Peptide (0-100) pg/ml Total Protein 7.2 (6.4-8.2) g/dL Albumin 2.4 L (3.4-5.0) g/dL Globulin 4.8 Albumin/Globulin Ratio 0.50 07/24/21 Range/Units 10:41 WBC (5.0-10.0) 10^3/uL RBC (4.6-6.2) 10^6/uL Hgb (14.0-18.0) g/dL Hct (40.0-54.0) % MCV (80-100) fL MCH (27.0-34.0) pg MCHC (33.0-35.0) g/dL Plt Count (150-450) 10^3/uL Neut % (Auto) (42.2-75.2) % Lymph % (Auto) (20.5-50.1) % [place] % (Auto) (2-8) % Eos % (Auto) (1.0-3.0) % Baso % (Auto) (0.0-1.0) % Sodium (136-145) mmol/L Potassium (3.5-5.1) mmol/L Chloride (98-107) mmol/L Carbon Dioxide (21-32) mmol/L Anion Gap (7-13) mEq/L BUN (7-18) mg/dL Creatinine (0.70-1.30) mg/dL Est Cr Clr Drug Dosing mL/min Estimated GFR (MDRD) BUN/Creatinine Ratio (No establ ref range) Glucose (70-99) mg/dL Lactic Acid (0.4-2.0) mmol/L Calcium (8.5-10.1) mg/dL Total Bilirubin (0.2-1.0) mg/dL AST (15-37) U/L ALT (16-63) U/L Alkaline Phosphatase (46-116) U/L Troponin I High Sens (<=76) pg/mL B-Natriuretic Peptide 516 H (0-100) pg/ml Total Protein (6.4-8.2) g/dL Albumin (3.4-5.0) g/dL Globulin Albumin/Globulin Ratio Meds: Medications Discontinued Medications Generic Name Dose Route Start Last Admin Trade Name Freq PRN Reason Stop Dose Admin Azithromycin 500 mg 12/12/20 12:32 Azithromycin 250 Mg Tab PO 12/12/20 12:33 ONETIME ONE Ceftriaxone Sodium 1 gm/ 0 gm 12/12/20 12:32 Lidocaine HCl 2.1 ml IM 12/12/20 12:33 ONETIME ONE Departure - Departure Time of Disposition: 12:47 Disposition: Home, Self-Care 01 Condition: Fair Clinical Impression: Bronchitis - Discharge Information *PRESCRIPTION DRUG MONITORING PROGRAM REVIEWED*: Not Applicable *COPY OF PRESCRIPTION DRUG MONITORING REPORT IN PATIENT LAILA: Not Applicable Instructions: Acute Bronchitis, Adult, [id number] Forms: ED Department Discharge Care Plan Goals: The patient was advised of the examination, x-ray and lab results during the visit. The patient was given an IM dose of Rocephin (1 gram) and an oral dose of Azithromycin while in the ED. The patient was discharged with a dose of Azithromycin (250 mg) to take tomorrow and a script for Azithromycin (250 mg) #3 to take 1 by mouth daily starting on 12/14/20. If the patient has any additional symptoms or concerns, the patient should visit his primary care facility or return to the emergency department. Sepsis Event Note (ED) - Evaluation Sepsis Screening Result: No Definite Risk - Focused Exam Vital Signs: Vital Signs Temp Pulse Resp BP Pulse Ox 12/12/20 10:26 98.1 F 69 16 115/59 L 97 - My Orders Last 24 Hours: My Active Orders 12/12/20 10:31 EKG Documentation Completion [RC] STAT 12/12/20 10:41 CULTURE BLOOD [BC] Stat - Assessment/Plan Last 24 Hours: My Active Orders 12/12/20 10:31 EKG Documentation Completion [RC] STAT 12/12/20 10:41 CULTURE BLOOD [BC] Stat
[2020-12-12 11:11] LABS: ANION GAP 16.6 mEq/L (7-13)
--- NOTE | 2020-12-12 12:14 | CR ---
PROCEDURE INFORMATION: Exam: XR Chest Exam date and time: 12/12/2020 11:08 AM Age: 70 years old Clinical indication: Cough; Additional info: Cough with chest discomfort TECHNIQUE: Imaging protocol: XR of the chest. Views: 1 view. COMPARISON: CR Chest 1V Frontal 12/10/2017 10:12 PM FINDINGS: Lungs: There is mild increase in interstitial markings within the lungs. This is nonspecific. No pneumonia or pulmonary edema is present. Pleural spaces: Unremarkable. No pleural effusion. No pneumothorax. Heart/Mediastinum: Heart size is moderately prominent. Postoperative change from prior coronary bypass surgery present. Bones/joints: Unremarkable. IMPRESSION: Nonspecific chronic change, postoperative change and cardiomegaly. No definite pneumonia or pulmonary edema present.
[2020-12-12] MEDS ORDERED: cefTRIAXone 1 GM, Lidocaine 1% 2.1 ML IM ONE ×2 (12:32)
[2020-12-12] MEDS ORDERED: Azithromycin 250 MG Tab ONE (12:59)
== END 2020-12-12 13:05 | disposition home or self-care (01) ==
LOC: DL.ED 09:55
DX: J40 Bronchitis, not specified as acute or chronic (principal); I11.0 Hypertensive heart disease with heart failure; I50.9 Heart failure, unspecified; E78.00 Pure hypercholesterolemia, unspecified; E11.40 Type 2 diabetes mellitus with diabetic neuropathy, unspecified; Z79.4 Long term (current) use of insulin; Z79.82 Long term (current) use of aspirin; Z95.1 Presence of aortocoronary bypass graft; Z79.899 Other long term (current) drug therapy
CPT/HCPCS: 36415; 71045; 80053; 83605; 83880; 84484; 85025; 87040; 93005; 93010; 96372; 99283; 99284; A9270; J0696

== ENCOUNTER 2021-07-26 13:35 | Inpatient (IN) | payer MEDICARE, OTHER ==
[2021-07-26] MEDS ORDERED: Sodium Chloride 0.9% 10 ML Syringe FLUSH PRN ×2 (14:22→19:33)
[2021-07-26 14:50] LABS: ANION GAP 18.1 mEq/L (7-13)
[2021-07-26] MEDS ORDERED: Furosemide 20 MG/2 ML VIAL IVPUSH ONE (15:29)
[2021-07-26] MEDS ORDERED: Furosemide 20 MG/2 ML VIAL ONE (17:46)
[2021-07-26] MEDS ORDERED: Albuterol 0.083% 2.5 MG/3 ML Neb Soln NEB PRN (19:33)
[2021-07-26] MEDS ORDERED: Acetaminophen 325 MG Tab PO PRN (19:33)
[2021-07-26] MEDS ORDERED: Ondansetron 4 MG Tab.DIS PO PRN (19:33)
[2021-07-26] MEDS ORDERED: Glucagon,Human Recombinant 1 MG Vial IM PRN (19:42)
[2021-07-26] MEDS ORDERED: Furosemide 40 MG/4 ML VIAL IVPUSH ONE (19:42)
[2021-07-26] MEDS ORDERED: 50% Dextrose in Water 50 ML Syringe IVPUSH PRN (19:42)
[2021-07-26] MEDS: traZODone 50 MG Tab PO SCH (21:25)
[2021-07-26] MEDS: Insulin Lispro 100 Units/ML 3 ML Vial SUBCUT SCH (21:50)
[2021-07-27 06:23] LABS: ANION GAP 17.8 mEq/L (7-13)
[2021-07-27] MEDS ORDERED: Carvedilol 25 MG Tab PO SCH (09:00)
[2021-07-27] MEDS: Aspirin 81 MG Tab.EC PO SCH (09:17)
[2021-07-27] MEDS: Insulin Lispro 100 Units/ML 3 ML Vial SUBCUT SCH ×4 (09:17→21:27)
[2021-07-27] MEDS: atorvaSTATin 20 MG Tab PO SCH (09:17)
[2021-07-27] MEDS: Isosorbide Mononitrate 60 MG Tab.ER PO SCH (09:17)
[2021-07-27] MEDS: Enoxaparin 30 MG/0.3 ML Syringe SUBCUT SCH (09:17)
[2021-07-27] MEDS ORDERED: Furosemide 20 MG/2 ML VIAL IVPUSH ONE (10:00)
[2021-07-27] MEDS: traZODone 50 MG Tab PO SCH (23:38)
[2021-07-28 09:24] LABS: ANION GAP 14.6 mEq/L (7-13)
[2021-07-28] MEDS ORDERED: Furosemide 40 MG/4 ML VIAL IVPUSH SCH (10:15)
[2021-07-28] MEDS: Insulin Lispro 100 Units/ML 3 ML Vial SUBCUT SCH ×2 (10:18→12:57)
[2021-07-28] MEDS: Isosorbide Mononitrate 60 MG Tab.ER PO SCH (10:25)
[2021-07-28] MEDS: atorvaSTATin 20 MG Tab PO SCH (10:26)
[2021-07-28] MEDS: Aspirin 81 MG Tab.EC PO SCH (10:26)
[2021-07-28] MEDS: Enoxaparin 30 MG/0.3 ML Syringe SUBCUT SCH (10:26)
[2021-07-28] MEDS ORDERED: Carboxymethylcellulose Sodium 1% Ophth Gel 0.4 ML UD EYEBOTH PRN (16:13)
[2021-07-28 16:42] VITALS: BP 152/75; PULSE 70
[2021-07-28] MEDS ORDERED: Heparin Sodium 5,000 Units/ML Vial SUBCUT SCH (22:00)
== END 2021-07-28 17:30 | DRG 291 ==
LOC: DL.ED 13:35 → UNDOADMOB 18:35 → DL.MS 18:35 → DL.ED 18:37 → DL.MS 18:38 → OBSVTOIN 07-28 09:57
PROVIDERS: ADMIT Internal Medicine; ATTEND Internal Medicine
DX: I13.0 Hypertensive heart and chronic kidney disease with heart failure and stage 1 through stage 4 chronic kidney disease, or unspecified chronic kidney disease (principal); I50.43 Acute on chronic combined systolic (congestive) and diastolic (congestive) heart failure; N17.9 Acute kidney failure, unspecified; H35.30 Unspecified macular degeneration; N18.9 Chronic kidney disease, unspecified; E78.5 Hyperlipidemia, unspecified; E11.21 Type 2 diabetes mellitus with diabetic nephropathy; Z20.822 Contact with and (suspected) exposure to COVID-19; M19.90 Unspecified osteoarthritis, unspecified site; E11.42 Type 2 diabetes mellitus with diabetic polyneuropathy; E61.1 Iron deficiency; E11.22 Type 2 diabetes mellitus with diabetic chronic kidney disease; Z89.422 Acquired absence of other left toe(s); J45.909 Unspecified asthma, uncomplicated; I25.10 Atherosclerotic heart disease of native coronary artery without angina pectoris; Z79.4 Long term (current) use of insulin; Z79.899 Other long term (current) drug therapy; Z79.82 Long term (current) use of aspirin; Z79.52 Long term (current) use of systemic steroids; Z95.1 Presence of aortocoronary bypass graft; Z88.8 Allergy status to other drugs, medicaments and biological substances; Z79.01 Long term (current) use of anticoagulants; Z95.2 Presence of prosthetic heart valve; Z89.432 Acquired absence of left foot; Z87.891 Personal history of nicotine dependence
CPT/HCPCS: 36415 ×3; 71045; 80048 ×2; 80053; 82947 ×6; 83880; 85025 ×2; 93005; A9270 ×5; J1650; J1815; J1940 ×3; U0002; 96372; 96374; 96376; 99285-25; G0378

== ENCOUNTER 2021-11-13 02:56 | Emergency (ER) | payer MEDICARE, OTHER ==
[2021-11-13 03:54] LABS: ANION GAP 12.5 mEq/L (7-13)
[2021-11-13] MEDS: Enoxaparin 100 MG/1 ML Syringe SUBCUT ONE (04:11)
[2021-11-13 04:14] VITALS: BP 144/67; PULSE 84
[2021-11-13] MEDS: Heparin Sodium/0.45% NaCl 25,000 UNITS/500 ML BAG IV STA (04:43)
[2021-11-13 05:32] LABS: PTT,PARTIAL THROMBOPLSTIN TIME 29.6 SEC (22.0-34.0)
== END 2021-11-13 05:28 ==
LOC: DL.ED 02:56
DX: I21.4 Non-ST elevation (NSTEMI) myocardial infarction (principal); I24.9 Acute ischemic heart disease, unspecified; E11.40 Type 2 diabetes mellitus with diabetic neuropathy, unspecified; I10 Essential (primary) hypertension; I50.9 Heart failure, unspecified; M19.90 Unspecified osteoarthritis, unspecified site; Z20.822 Contact with and (suspected) exposure to COVID-19; Z88.8 Allergy status to other drugs, medicaments and biological substances; Z79.82 Long term (current) use of aspirin; Z79.899 Other long term (current) drug therapy
CPT/HCPCS: 36415; 71045; 80053; 83735; 83880; 84484; 85025; 85610; 85730; 93005; 96365; 96372; 99285; J1644; J1650; U0002; 93010; 99284

== ENCOUNTER 2022-02-17 01:01 | Emergency (ER) | payer MEDICARE, OTHER ==
[2022-02-17 01:21] VITALS: BP 114/61; PULSE 71
[2022-02-17] MEDS: Furosemide 40 MG/4 ML VIAL IVPUSH ONE (02:30)
[2022-02-17 02:44] LABS: ANION GAP 17.2 mEq/L (7-13)
[2022-02-17] MEDS: Aspirin 81 MG Tab.Chew PO ONE (03:13)
[2022-02-17] MEDS: Heparin Sodium 5,000 Units/ML Vial IVPUSH ONE (03:14)
[2022-02-17] MEDS: Heparin Sodium/0.45% NaCl 25,000 UNITS/500 ML BAG IV SCH (03:15)
== END 2022-02-17 06:21 ==
LOC: DL.ED 01:01
DX: I21.4 Non-ST elevation (NSTEMI) myocardial infarction (principal); E87.70 Fluid overload, unspecified; I13.2 Hypertensive heart and chronic kidney disease with heart failure and with stage 5 chronic kidney disease, or end stage renal disease; E11.22 Type 2 diabetes mellitus with diabetic chronic kidney disease; I50.9 Heart failure, unspecified; N18.6 End stage renal disease; J45.909 Unspecified asthma, uncomplicated; Z88.8 Allergy status to other drugs, medicaments and biological substances; Z79.4 Long term (current) use of insulin; Z79.899 Other long term (current) drug therapy; Z79.82 Long term (current) use of aspirin; Z86.16 Personal history of COVID-19; Z20.822 Contact with and (suspected) exposure to COVID-19; Z99.2 Dependence on renal dialysis
CPT/HCPCS: 36415; 71045; 80053; 82150; 83690; 83735; 83880; 84484; 85025; 85379; 85610; 87040; 93005; 93010; 96365; 96366; 96375; 99285; 99285-25; A9270-GY; J1644; J1940; U0002

== ENCOUNTER 2022-03-13 19:09 | Emergency (ER) | payer MEDICARE, OTHER ==
[2022-03-13] MEDS ORDERED: Furosemide 40 MG/4 ML VIAL IVPUSH ONE (19:49)
[2022-03-13] MEDS ORDERED: Aspirin 81 MG Tab.Chew PO ONE (19:51)
[2022-03-13 20:35] LABS: ANION GAP 18.1 mEq/L (7-13); CHLORIDE,CL 100 mmol/L (98-107); SODIUM,NA 137 mmol/L (136-145)
[2022-03-13 20:39] LABS: ESTIMATED GFR 8 mL/min (>=60)
[2022-03-13] MEDS ORDERED: Iopamidol 755 Mg/ML 100 ML Bottle IVPUSH ONE (21:40)
[2022-03-13] MEDS ORDERED: Bumetanide 1 MG/4 ML MDV IVPUSH ONE (22:48)
[2022-03-13] MEDS ORDERED: Calcium Gluconate 10% 1 GM/10 ML SDV IVPUSH ONE (22:48)
[2022-03-13] MEDS ORDERED: Dextrose 10% in Water 500 ML IV ONE (22:56)
[2022-03-13] MEDS ORDERED: Glucagon,Human Recombinant 1 MG Vial IM PRN (22:56)
[2022-03-13] MEDS ORDERED: 50% Dextrose in Water 50 ML Syringe IVPUSH ONE (23:00)
[2022-03-13] MEDS ORDERED: Insulin Regular in 0.9 % NACL 100 ML ONE (23:08)
[2022-03-13] MEDS: 50% Dextrose in Water 50 ML Syringe IVPUSH PRN (23:50)
[2022-03-14] MEDS: 50% Dextrose in Water 50 ML Syringe IVPUSH PRN ×3 (01:42→05:16)
[2022-03-14] MEDS ORDERED: Heparin Sodium 5,000 Units/ML Vial IVPUSH ONE (02:12)
[2022-03-14] MEDS ORDERED: Heparin Sodium/0.45% NaCl 25,000 UNITS/500 ML BAG IV SCH (02:15)
[2022-03-14] MEDS ORDERED: 50% Dextrose in Water 50 ML Syringe IVPUSH ONE (03:16)
[2022-03-14 03:29] VITALS: BP 120/64; PULSE 74
[2022-03-14] MEDS ORDERED: Iopamidol 755 Mg/ML 100 ML Bottle IVPUSH ONE (05:06)
[2022-03-14 06:19] LABS: ANION GAP 16.8 mEq/L (7-13); CHLORIDE,CL 100 mmol/L (98-107); SODIUM,NA 137 mmol/L (136-145)
[2022-03-14 06:21] LABS: ESTIMATED GFR 7 mL/min (>=60)
[2022-03-14] MEDS ORDERED: Aspirin 81 MG Tab.Chew PO ONE (19:51)
== END 2022-03-14 18:48 ==
LOC: DL.ED 19:09
DX: U07.1 COVID-19 (principal); E87.5 Hyperkalemia; I11.0 Hypertensive heart disease with heart failure; I50.9 Heart failure, unspecified; E11.40 Type 2 diabetes mellitus with diabetic neuropathy, unspecified; R77.8 Other specified abnormalities of plasma proteins; E78.00 Pure hypercholesterolemia, unspecified; Z88.8 Allergy status to other drugs, medicaments and biological substances; Z79.899 Other long term (current) drug therapy
CPT/HCPCS: 36415; 71045; 71250; 71260; 80048; 80053; 82150; 82947; 83605; 83690; 83735; 83880; 84132; 84484; 85025; 85379; 85610; 86140; 87040; 93005; 93010; 96361; 96365; 96366; 96375; 99285; 99285-25; A9270-GY; J0610; J1644; J1815-GY; J1940; J3490; Q9967; U0002

== ENCOUNTER 2022-04-10 01:11 | Emergency (ER) | payer MEDICARE, OTHER ==
[2022-04-10] MEDS ORDERED: Levofloxacin 500 MG Tab PO ONE (01:12)
[2022-04-10] MEDS ORDERED: Benzonatate 100 MG Cap PO ONE (01:12)
[2022-04-10] MEDS ORDERED: Sodium Chloride 0.9% 10 ML Syringe FLUSH PRN (01:20)
[2022-04-10 01:36] VITALS: BP 119/57; PULSE 76
[2022-04-10 01:51] LABS: ANION GAP 16.5 mEq/L (7-13)
[2022-04-10] MEDS ORDERED: Benzonatate 100 MG Cap ONE (02:36)
[2022-04-10] MEDS ORDERED: Levofloxacin 500 MG Tab ONE (02:37)
== END 2022-04-10 02:40 | disposition home or self-care (01) ==
LOC: DL.ED 01:11
DX: J18.1 Lobar pneumonia, unspecified organism (principal); I13.0 Hypertensive heart and chronic kidney disease with heart failure and stage 1 through stage 4 chronic kidney disease, or unspecified chronic kidney disease; E11.22 Type 2 diabetes mellitus with diabetic chronic kidney disease; E11.42 Type 2 diabetes mellitus with diabetic polyneuropathy; I50.9 Heart failure, unspecified; N18.9 Chronic kidney disease, unspecified; Z99.2 Dependence on renal dialysis; Z88.8 Allergy status to other drugs, medicaments and biological substances; Z79.4 Long term (current) use of insulin; Z79.82 Long term (current) use of aspirin; Z86.16 Personal history of COVID-19; Z95.1 Presence of aortocoronary bypass graft; Z87.891 Personal history of nicotine dependence
CPT/HCPCS: 36415; 71046; 80053; 83605; 83880; 85025; 86140; 87040; 99283; J3490; A9270-GY